=== PATIENT | female | born 1935 | race Hispanic/Latino ===

== ENCOUNTER 2023-11-10 16:39 | Emergency (ER) | payer SELFPAY ==
[~2023-11-10] VITALS: Ht 147.3 cm; Wt 63.5 kg
[2023-11-10] MEDS ORDERED: CLINDAMYCIN HC150 MG PO (17:38)
[2023-11-10] MEDS: BALSAM PERU/CASTOR OIL 60 GM OINT...G. TP ONE (19:04)
[2023-11-10] MEDS: COLLAGENASE 5 GM TUBE TOP SCH (19:05)
[2023-11-10] MEDS: CADEXOMER IODINE 30 GM TUBE TOP PRN (19:05)
[2023-11-10 22:34] VITALS: PULSE 76; RESP 16; TEMP 97.6; O2SAT 97
== END 2023-11-10 22:50 | disposition home or self-care (01) ==
LOC: ER 16:49
DX: L89.152 Pressure ulcer of sacral region, stage 2 (principal); I10 Essential (primary) hypertension; E11.9 Type 2 diabetes mellitus without complications; Z86.73 Personal history of transient ischemic attack (TIA), and cerebral infarction without residual deficits
CPT/HCPCS: 99283

== ENCOUNTER 2024-03-08 11:43 | Inpatient (IN) | payer MEDICAID ==
[~2024-03-08] VITALS: Ht 147.3 cm; Wt 63.5 kg
[~2024-03-08 11:43] MED LIST: CLINDAMYCIN HC150 MG PO
[2024-03-08 13:14] LABS: BASOPHILS % 0.2 % (0.0-1.0); EOSINOPHILS % 0.1 % (0.0-6.0); HEMATOCRIT 32.4 % (34.2-44.1); HEMOGLOBIN 10.8 g/dL (12.0-16.0); LYMPHOCYTES # (AUTO) 2.2 (1.0-3.2); LYMPHOCYTES % 13.8 % (18.0-39.1); MEAN CORPUSCULAR HEMOGLOBIN 31.7 pg (28-32); MEAN CORPUSCULAR HGB CONC 33.3 g/dL (31-35); MONOCYTES # (AUTO) 0.8 (0.2-0.8); MONOCYTES % 5.2 % (4.4-11.3); NEUTROPHILS # (AUTO) 12.5 (2.1-6.9); NEUTROPHILS % 80.1 % (38.7-80.0); PLATELET COUNT 283 x10e3/uL (140-360); RED BLOOD COUNT 3.41 x10e6/uL (3.6-5.1); WHITE BLOOD COUNT 15.57 x10e3/uL (4.8-10.8)
[2024-03-08 13:21] LABS: INR 1.08; PROTHROMBIN TIME 14.7 seconds (11.9-14.5)
[2024-03-08 13:22] LABS: PARTIAL THROMBOPLASTIN TIME 38.5 seconds (23.8-35.5)
[2024-03-08 13:36] LABS: ALBUMIN 1.9 g/dL (3.5-5.0); ALBUMIN/GLOBULIN RATIO 0.6 (0.8-2.0); ANION GAP 16.7 mmol/L (8-16); CALCIUM 7.6 mg/dL (8.4-10.2); CREATININE, SERUM 0.81 mg/dL (0.57-1.11); POTASSIUM 4.7 mmol/L (3.5-5.1); TOTAL PROTEIN 5.2 g/dL (6.5-8.1)
[2024-03-08 13:42] LABS: TROPONIN I 0.011 ng/mL (0-0.300)
[2024-03-08] MEDS: SODIUM CHLORIDE 0.9% 1000ML 1,000 ML IV STA ×2 (13:46→13:47)
[2024-03-08] MEDS: Doxycycline IV 100 MG in SODIUM CHLORIDE 0.9% 100 ML IV SCH (14:00)
[2024-03-08 14:10] LABS: CLARITY,URINE CLOUDY (CLEAR); COLOR,URINE YELLOW (YELLOW); LEUKOCYTE ESTERASE ,URINE LARGE (NEGATIVE); NITRITE,URINE NEGATIVE (NEGATIVE); PH,URINE 5.5 (5 - 7)
[2024-03-08 14:11] LABS: BILIRUBIN,URINE 1+ (NEGATIVE); GLUCOSE, URINE NEGATIVE (NEGATIVE); KETONES,URINE NEGATIVE (NEGATIVE); PROTEIN,URINE DIPSTICK 1+ (NEGATIVE); URINE UROBILINOGEN 0.2 mg/dL (0.2 - 1)
[2024-03-08 14:15] LABS: AMORPHOUS SEDIMENT,URINE MANY (FEW); BACTERIA,URINE MANY /HPF; EPITHELIAL CELLS,URINE FEW /LPF; MUCUS,URINE MANY (RARE); RBC,URINE >50 /HPF (0-5); WBC,URINE (MAN) >50 /HPF (0-5)
[2024-03-08 14:29] LABS: CORONAVIRUS COVID-19 AG NEGATIVE (NEGATIVE); INFLUENZA A AG NEGATIVE (NEGATIVE); INFLUENZA B AG NEGATIVE (NEGATIVE)
[2024-03-08] MEDS: MAGNESIUM SULFATE 2GM/50ML 50 ML IV ONE ×2 (14:46→21:43)
[2024-03-08] MEDS: Vancomycin IV 1 GM in SODIUM CHLORIDE 0.9% 250ML 250 ML IV ONE (15:19)
[2024-03-08] MEDS ORDERED: ONDANSETRON HCL INJ 2MG/ML 2ML 2 MG/ML VIAL IV PRN (15:45)
[2024-03-08 15:48] VITALS: PULSE 94; RESP 20; TEMP 98.7
[2024-03-08 16:24] VITALS: PULSE 74; RESP 20; O2SAT 95
[2024-03-08] MEDS: SODIUM CHLORIDE 0.9% 1000ML 1,000 ML IV SCH (16:30)
[2024-03-08] MEDS ORDERED: SIMETHICONE 80 MG CHEW PO PRN (18:30)
[2024-03-08] MEDS ORDERED: DOCUSATE SODIUM 100 MG CAP PO PRN (18:30)
[2024-03-08] MEDS ORDERED: ACETAMINOPHEN 325 MG TAB PO PRN (18:30)
[2024-03-08] MEDS ORDERED: METOPROLOL TARTRATE INJ 1 MG/ML VIAL IV PRN (18:30)
[2024-03-08 18:45] VITALS: BP 112/58; PULSE 94; RESP 20; TEMP 98.7; O2SAT 99
[2024-03-08 19:30] VITALS: PULSE 89; RESP 18; O2SAT 95
[2024-03-08 20:00] VITALS: BP 104/58; PULSE 99; RESP 18; TEMP 97.9; O2SAT 95
[2024-03-08] MEDS ORDERED: OMEPRAZOLE40 MG PO (20:14)
[2024-03-08] MEDS ORDERED: LISINOPRIL10 MG PO (20:14)
[2024-03-08] MEDS ORDERED: AMLODIPINE BESYL5 MG PO (20:14)
[2024-03-08] MEDS ORDERED: METFORMIN HCL500 MG PO (20:14)
[2024-03-08] MEDS ORDERED: QUETIAPINE FUMA25 MG PO (20:14)
[2024-03-08] MEDS ORDERED: ASPIRIN81 MG PO (20:14)
[2024-03-08 20:30] VITALS: BP 104/58; PULSE 99; RESP 18; TEMP 97.9; O2SAT 95
[2024-03-08] MEDS ORDERED: MELATONIN 3 MG TAB PO PRN (21:00)
[2024-03-09] VITALS (9 sets, daily range): BP systolic 98–118; BP diastolic 45–75; PULSE 86–99; RESP 17–19; TEMP 97.4–98.1; O2SAT 94–97
[2024-03-09 00:25] LABS: CREATINE KINASE 16 IU/L (29-168)
[2024-03-09 00:44] LABS: TROPONIN I < 0.001 ng/mL (0-0.300)
[2024-03-09 07:38] LABS: BASOPHILS % 0.3 % (0.0-1.0); EOSINOPHILS % 0.1 % (0.0-6.0); HEMATOCRIT 28.6 % (34.2-44.1); HEMOGLOBIN 9.6 g/dL (12.0-16.0); LYMPHOCYTES # (AUTO) 1.4 (1.0-3.2); LYMPHOCYTES % 10.5 % (18.0-39.1); MEAN CORPUSCULAR HEMOGLOBIN 32.4 pg (28-32); MEAN CORPUSCULAR HGB CONC 33.6 g/dL (31-35); MEAN CORPUSCULAR VOLUME 96.6 fL (81-99); MONOCYTES # (AUTO) 0.6 (0.2-0.8); MONOCYTES % 4.4 % (4.4-11.3); NEUTROPHILS # (AUTO) 11.4 (2.1-6.9); NEUTROPHILS % 84.1 % (38.7-80.0); PLATELET COUNT 212 x10e3/uL (140-360); RED BLOOD COUNT 2.96 x10e6/uL (3.6-5.1); RED CELL DISTRIBUTION WIDTH 14.1 % (11.7-14.4); WHITE BLOOD COUNT 13.55 x10e3/uL (4.8-10.8)
[2024-03-09 07:52] LABS: CREATINE KINASE 15 IU/L (29-168)
[2024-03-09 08:02] LABS: TROPONIN I < 0.001 ng/mL (0-0.300)
[2024-03-09] MEDS: FAMOTIDINE 20 MG TAB PO SCH (08:27)
[2024-03-09 10:20] LABS: ALBUMIN 1.7 g/dL (3.5-5.0); ALBUMIN/GLOBULIN RATIO 0.5 (0.8-2.0); ANION GAP 16.1 mmol/L (8-16); BILIRUBIN,TOTAL 0.8 mg/dL (0.2-1.2); CALCIUM 7.1 mg/dL (8.4-10.2); CREATININE, SERUM 0.62 mg/dL (0.57-1.11); MAGNESIUM 2.2 MG/DL (1.3-2.1); POTASSIUM 4.1 mmol/L (3.5-5.1); TOTAL PROTEIN 4.8 g/dL (6.5-8.1)
[2024-03-09] MEDS: ENOXAPARIN SOD INJ 40 MG/0.4 ML SYR SC SCH (16:53)
[2024-03-10] VITALS (9 sets, daily range): BP systolic 94–135; BP diastolic 55–91; PULSE 80–99; RESP 16–19; TEMP 97.6–99.6; O2SAT 95–100
[2024-03-10 06:20] LABS: ANION GAP 13.6 mmol/L (8-16); CREATININE, SERUM 0.54 mg/dL (0.57-1.11); POTASSIUM 3.6 mmol/L (3.5-5.1)
[2024-03-10 06:23] LABS: CALCIUM 6.9 mg/dL (8.4-10.2)
[2024-03-10] MEDS ORDERED: SODIUM BICARBONATE 650 MG TAB PO SCH (06:30)
[2024-03-10] MEDS: SODIUM BICARBONATE 8.4% SYRING 100 ML in DEXTROSE 5% 1,000 ML IV SCH (07:05)
[2024-03-10] MEDS: CALCIUM GLUC 1 G/50 ML NACL 50 ML IV ONE (07:09)
[2024-03-10] MEDS: DEXTROSE 5% 1,000 ML IV ONE (07:15)
[2024-03-10] MEDS: ALBUTEROL/IPRATROPIUM 3 ML NEB NEB PRN (17:28)
[2024-03-11] VITALS (10 sets, daily range): BP systolic 105–121; BP diastolic 52–79; PULSE 85–96; RESP 14–20; TEMP 97–98.8; O2SAT 94–100
[2024-03-11] MEDS ORDERED: FUROSEMIDE INJ 10 MG/ML 2 ML VIAL IV SCH (00:30)
[2024-03-11] MEDS: FUROSEMIDE INJ 10 MG/ML 2 ML VIAL IV ONE ×3 (01:24→20:55)
[2024-03-11 05:35] LABS: BASOPHILS % 0.3 % (0.0-1.0); EOSINOPHILS % 0.2 % (0.0-6.0); HEMATOCRIT 25.7 % (34.2-44.1); LYMPHOCYTES # (AUTO) 1.8 (1.0-3.2); LYMPHOCYTES % 19.2 % (18.0-39.1); MEAN CORPUSCULAR HEMOGLOBIN 32.7 pg (28-32); MEAN CORPUSCULAR VOLUME 93.5 fL (81-99); MONOCYTES # (AUTO) 0.6 (0.2-0.8); MONOCYTES % 6.3 % (4.4-11.3); NEUTROPHILS # (AUTO) 6.9 (2.1-6.9); NEUTROPHILS % 72.5 % (38.7-80.0); PLATELET COUNT 218 x10e3/uL (140-360); RED BLOOD COUNT 2.75 x10e6/uL (3.6-5.1); RED CELL DISTRIBUTION WIDTH 14.4 % (11.7-14.4); WHITE BLOOD COUNT 9.49 x10e3/uL (4.8-10.8)
[2024-03-11 05:58] LABS: ANION GAP 12.1 mmol/L (8-16); CALCIUM 7.1 mg/dL (8.4-10.2); CREATININE, SERUM 0.59 mg/dL (0.57-1.11)
[2024-03-11 06:01] LABS: POTASSIUM 3.1 mmol/L (3.5-5.1)
[2024-03-11] MEDS: BALSAM PERU/CASTOR OIL 60 GM OINT...G. TP SCH (22:05)
[2024-03-11] MEDS: Doxycycline IV 100 MG in SODIUM CHLORIDE 0.9% 100 ML IV SCH (23:50)
[2024-03-12] VITALS (8 sets, daily range): BP systolic 95–123; BP diastolic 57–75; PULSE 78–99; RESP 17–24; TEMP 97.7–98.5; O2SAT 94–100
[2024-03-12 06:37] LABS: BASOPHILS % 0.4 % (0.0-1.0); EOSINOPHILS % 0.5 % (0.0-6.0); HEMATOCRIT 26.5 % (34.2-44.1); HEMOGLOBIN 9.2 g/dL (12.0-16.0); LYMPHOCYTES % 25.8 % (18.0-39.1); MEAN CORPUSCULAR HEMOGLOBIN 32.4 pg (28-32); MEAN CORPUSCULAR HGB CONC 34.7 g/dL (31-35); MEAN CORPUSCULAR VOLUME 93.3 fL (81-99); MONOCYTES # (AUTO) 0.8 (0.2-0.8); MONOCYTES % 10.3 % (4.4-11.3); NEUTROPHILS # (AUTO) 4.9 (2.1-6.9); PLATELET COUNT 210 x10e3/uL (140-360); RED BLOOD COUNT 2.84 x10e6/uL (3.6-5.1); RED CELL DISTRIBUTION WIDTH 14.1 % (11.7-14.4); WHITE BLOOD COUNT 7.88 x10e3/uL (4.8-10.8)
[2024-03-12 06:48] LABS: ANION GAP 11.9 mmol/L (8-16); CALCIUM 7.2 mg/dL (8.4-10.2); CREATININE, SERUM 0.6 mg/dL (0.57-1.11)
[2024-03-12 06:51] LABS: POTASSIUM 2.9 mmol/L (3.5-5.1)
[2024-03-12] MEDS: POTASSIUM CHLORIDE 20MEQ/100ML 100 ML IV ONE (08:29)
[2024-03-12] MEDS ORDERED: BALSAM PERU/CASTOR OIL 60 GM OINT...G. TP SCH (09:00)
[2024-03-12] MEDS: SODIUM BICARBONATE 8.4% VIAL 100 ML in DEXTROSE 5% 1,000 ML IV SCH (16:46)
[2024-03-12] MEDS: MUPIROCIN 2% OINT 22 GM TUBE TOP SCH (16:48)
[2024-03-13] VITALS (8 sets, daily range): BP systolic 108–135; BP diastolic 69–82; PULSE 68–113; RESP 16–20; TEMP 97.6–98.5; O2SAT 95–98
[2024-03-13 06:04] LABS: BASOPHILS % 0.2 % (0.0-1.0); EOSINOPHILS % 0.4 % (0.0-6.0); HEMATOCRIT 26.3 % (34.2-44.1); HEMOGLOBIN 9.2 g/dL (12.0-16.0); LYMPHOCYTES # (AUTO) 1.6 (1.0-3.2); LYMPHOCYTES % 19.9 % (18.0-39.1); MEAN CORPUSCULAR HEMOGLOBIN 32.5 pg (28-32); MEAN CORPUSCULAR VOLUME 92.9 fL (81-99); MONOCYTES # (AUTO) 0.8 (0.2-0.8); MONOCYTES % 9.6 % (4.4-11.3); NEUTROPHILS # (AUTO) 5.6 (2.1-6.9); NEUTROPHILS % 68.9 % (38.7-80.0); PLATELET COUNT 194 x10e3/uL (140-360); RED BLOOD COUNT 2.83 x10e6/uL (3.6-5.1); RED CELL DISTRIBUTION WIDTH 14.2 % (11.7-14.4); WHITE BLOOD COUNT 8.19 x10e3/uL (4.8-10.8)
[2024-03-13 06:27] LABS: ANION GAP 13.9 mmol/L (8-16); CALCIUM 7.7 mg/dL (8.4-10.2); CREATININE, SERUM 0.58 mg/dL (0.57-1.11)
[2024-03-13 06:35] LABS: POTASSIUM 2.9 mmol/L (3.5-5.1)
[2024-03-13] MEDS: MEGESTROL ACETATE 40 MG TAB PO SCH (07:34)
[2024-03-13] MEDS: POTASSIUM CHLORIDE 20 MEQ TAB CR PO ONE (09:27)
[2024-03-13] MEDS: POTASSIUM CHLORIDE 20MEQ/100ML 100 ML IV ONE (09:28)
[2024-03-13] MEDS: FUROSEMIDE INJ 10 MG/ML 2 ML VIAL IV SCH (09:28)
[2024-03-13] MEDS: BISACODYL 10 MG SUPP PR SCH (22:14)
[2024-03-14] VITALS (8 sets, daily range): BP systolic 102–145; BP diastolic 68–96; PULSE 89–109; RESP 16–18; TEMP 97.1–98.9; O2SAT 96–100
[2024-03-14 06:48] LABS: BASOPHILS % 0.1 % (0.0-1.0); EOSINOPHILS % 0.2 % (0.0-6.0); HEMOGLOBIN 9.9 g/dL (12.0-16.0); LYMPHOCYTES # (AUTO) 1.7 (1.0-3.2); LYMPHOCYTES % 16.2 % (18.0-39.1); MEAN CORPUSCULAR HEMOGLOBIN 32.1 pg (28-32); MEAN CORPUSCULAR HGB CONC 35.4 g/dL (31-35); MEAN CORPUSCULAR VOLUME 90.9 fL (81-99); MONOCYTES % 9.8 % (4.4-11.3); NEUTROPHILS # (AUTO) 7.7 (2.1-6.9); NEUTROPHILS % 72.6 % (38.7-80.0); PLATELET COUNT 192 x10e3/uL (140-360); RED BLOOD COUNT 3.08 x10e6/uL (3.6-5.1); RED CELL DISTRIBUTION WIDTH 13.9 % (11.7-14.4); WHITE BLOOD COUNT 10.59 x10e3/uL (4.8-10.8)
[2024-03-14 07:05] LABS: ANION GAP 15.9 mmol/L (8-16); CALCIUM 7.7 mg/dL (8.4-10.2); CREATININE, SERUM 0.59 mg/dL (0.57-1.11)
[2024-03-14 07:14] LABS: POTASSIUM 2.9 mmol/L (3.5-5.1)
[2024-03-14] MEDS ORDERED: Docusate Sodium PO (08:44)
[2024-03-14] MEDS ORDERED: FUROSEMIDE20 MG PO (08:44)
[2024-03-14] MEDS ORDERED: MULTIVITAMINS1 EAC6 PO (08:44)
[2024-03-14] MEDS ORDERED: DULCOLAX SUPP10 MG PR (08:44)
[2024-03-14] MEDS ORDERED: REGLAN5 MG PO (08:44)
[2024-03-14] MEDS ORDERED: SIMETHICONE80 MG PO (08:44)
[2024-03-14] MEDS ORDERED: MEGESTROL ACETA40 MG PO (08:44)
[2024-03-14] MEDS ORDERED: K DUR10 MEQ PO (08:44)
[2024-03-14] MEDS ORDERED: FAMOTIDINE20 MG PO (08:44)
[2024-03-14] MEDS: POTASSIUM CHLORIDE 10MEQ/100ML 300 ML IV ONE (10:03)
[2024-03-14] MEDS ORDERED: ONDANSETRON HCL 4 MG ORAL DISINTEGRATING TAB PO PRN (11:15)
[2024-03-14] MEDS: POTASSIUM CHLORIDE 20MEQ/100ML 100 ML IV ONE (13:54)
[2024-03-14] MEDS: MAGNESIUM SULFATE 2GM/50ML 50 ML IV ONE (13:54)
[2024-03-14] MEDS ORDERED: DOXYCYCLINE HYCLATE TABLET 100 MG TAB PO SCH (22:00)
== END 2024-03-14 20:45 | disposition home or self-care (01) | DRG 871 ==
LOC: ER 12:19 → ERHOLD 15:44 → MED/SURG2 18:34
PROVIDERS: ADMIT Internal Medicine; ATTEND Internal Medicine
PROC: 02HV33Z Insertion of Infusion Device into Superior Vena Cava, Percutaneous Approach (ICD-10-PCS; principal; 2024-03-08)
PROC: 3E0333Z Introduction of Anti-inflammatory into Peripheral Vein, Percutaneous Approach (ICD-10-PCS; 2024-03-08)
DX: A41.51 Sepsis due to Escherichia coli [E. coli] (principal); R53.2 Functional quadriplegia; E87.1 Hypo-osmolality and hyponatremia; E87.20 Acidosis, unspecified; N39.0 Urinary tract infection, site not specified; E44.0 Moderate protein-calorie malnutrition; R65.20 Severe sepsis without septic shock; R34 Anuria and oliguria; R62.7 Adult failure to thrive; L89.152 Pressure ulcer of sacral region, stage 2; E11.9 Type 2 diabetes mellitus without complications; I10 Essential (primary) hypertension; J20.9 Acute bronchitis, unspecified; R06.03 Acute respiratory distress; E83.42 Hypomagnesemia; R63.0 Anorexia; R60.0 Localized edema; K59.00 Constipation, unspecified; R53.81 Other malaise; F03.C0 Unspecified dementia, severe, without behavioral disturbance, psychotic disturbance, mood disturbance, and anxiety; M21.371 Foot drop, right foot; M21.372 Foot drop, left foot; Z68.29 Body mass index [BMI] 29.0-29.9, adult; Z11.52 Encounter for screening for COVID-19; Z74.01 Bed confinement status; Z86.73 Personal history of transient ischemic attack (TIA), and cerebral infarction without residual deficits; Z88.0 Allergy status to penicillin
CPT/HCPCS: 36415; 36569; 70450; 71045; 74018; 80048; 80053; 81001; 82550; 82948; 83605; 83735; 83880; 84132; 84484; 85025; 85610; 85730; 87040; 87071; 87086; 87186; 87205; 93005; 94640; 94799; 99252; 99285; J0692; J1650; J1940; J3475; J3480; J7030; J7050; J7070